=== PATIENT | male | born 2000 | race Two or more races ===

== ENCOUNTER 2022-12-04 10:33 | Emergency (ER) | payer BC ==
[2022-12-04 10:51] VITALS: BMI 19.8
[2022-12-04 11:23] LABS: BASO % 0.6 % (0-2.0); EOS % 1.4 % (0-4.5); HEMATOCRIT 42.7 % (35.4-49); LYMPH % 28.7 % (8-40); MCH 29.2 pg (25.7-33.7); MCHC 32.9 g/dl (32.0-35.9); MEAN CELL VOLUME 88.9 fl (80-96); MONO % 6.5 % (3.8-10.2); NEUT % 62.8 % (42.8-82.8); PLATELET COUNT 205 10^3/uL (134-434); RDW 13.1 % (11.9-15.9); WHITE BLOOD COUNT 9.1 K/mm3 (4.0-10.0)
[2022-12-04 11:34] LABS: INR 1.13 (0.83-1.09)
[2022-12-04 11:36] LABS: ACTIVATED PTT 24.6 SECONDS (25.2-36.5)
[2022-12-04 11:49] LABS: MAGNESIUM 2.4 mg/dL (1.8-2.4)
[2022-12-04 11:50] LABS: BLOOD UREA NITROGEN 19.3 mg/dL (7-18)
[2022-12-04 11:53] LABS: CREATININE 1.2 mg/dL (0.55-1.3)
[2022-12-04 11:54] LABS: BILIRUBIN,TOTAL 0.5 mg/dL (0.2-1); TOT PROT 6.7 g/dl (6.4-8.2)
[2022-12-04 13:01] VITALS: RESP 16; TEMP 98.2
[2022-12-04] MEDS ORDERED: levETIRAcetam 500 MG/5 ML INJECTION VIAL IVPB ONE ×2 (14:41→14:52)
[2022-12-04 14:43] LABS: URINE APPEARANCE TURBID; URINE BILIRUBIN NEGATIVE (NEGATIVE); URINE COLOR YELLOW; URINE GLUCOSE (UA) NEGATIVE (NEGATIVE); URINE KETONE NEGATIVE (NEGATIVE); URINE LEUK ESTERASE NEGATIVE (NEGATIVE); URINE NITRITE NEGATIVE (NEGATIVE); URINE PROTEIN TRACE (NEGATIVE); URINE UROBILINOGEN 0.2 mg/dL (0.2-1.0)
[2022-12-04 14:58] LABS: OPIATES, URI NEGATIVE (NEGATIVE); PHENCYCLIDINE,URINE NEGATIVE (NEGATIVE)
[2022-12-04 14:59] LABS: COCAINE, UR NEGATIVE (NEGATIVE); URINE AMPHETAMINES NEGATIVE (NEGATIVE); URINE BENZODIAZEPINES NEGATIVE (NEGATIVE)
[2022-12-04 15:06] LABS: METHADONE, UR NEGATIVE (NEGATIVE); URINE BARBITURATES NEGATIVE (NEGATIVE)
[2022-12-04 15:59] VITALS: BP 109/62; PULSE 80
== END 2022-12-04 15:44 | disposition home or self-care (01) ==
LOC: JER 10:33
PROC: 3E033GC Introduction of Other Therapeutic Substance into Peripheral Vein, Percutaneous Approach (ICD-10-PCS; principal; 2022-12-04)
DX: R56.9 Unspecified convulsions (principal)
CPT/HCPCS: 36415; 70450-TC; 80053; 80307; 81003; 82962; 83735; 85025; 85610; 85730; 87086; 93005; 93010; 99285-25

== ENCOUNTER 2024-01-19 10:50 | Emergency (ER) | payer BC ==
[2024-01-19 10:56] VITALS: BP 142/70; PULSE 100; RESP 18; TEMP 100.6; BMI 20.4
== END 2024-01-19 12:47 | disposition home or self-care (01) ==
LOC: JERFT 10:50 → JER 10:50 → JERFT 12:47
DX: R05.9 Cough, unspecified (principal); R50.9 Fever, unspecified; M79.10 Myalgia, unspecified site; J10.1 Influenza due to other identified influenza virus with other respiratory manifestations; Z20.822 Contact with and (suspected) exposure to COVID-19
CPT/HCPCS: 0241U-QW; 99283-25